=== PATIENT | male | born 1945 | race African-American/Black ===

== ENCOUNTER → 2019-08-30 | Outpatient (CLI) | payer MEDICARE ==
--- NOTE | 2019-08-30 11:22 | Diagnostic Imaging Report ---
EXAMINATION: KNEE THREE VIEWS BILATERAL INDICATION: Bilateral knee pain COMPARISON: None FINDINGS: Left: No acute fracture or dislocation. Alignment is anatomic. Moderate medial compartment predominant tricompartmental degenerative changes. Suprapatellar joint effusion. 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 Right: No acute fracture or dislocation. Alignment is anatomic. Moderate patellofemoral compartment predominant tricompartmental degenerative changes. Suprapatellar joint effusion. 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 IMPRESSION: No acute osseous injury. 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 Bilateral knee joint effusions. Bilateral bone infarcts. Signed by: Anup Suarez MD on 08/30/2019 11:20 AM
== END ==
LOC: RAD 10:20
PROVIDERS: ATTEND Family Medicine
DX: M25.562 Pain in left knee (principal); M25.561 Pain in right knee

== ENCOUNTER → 2020-11-21 | Day surgery (SDC) | payer OTHER ==
[2020-11-16 13:29] LABS: BASOPHILS % 0.4 % (0.0-1.0); EOSINOPHILS # (AUTO) 0.2 (0.0-0.4); EOSINOPHILS % 1.8 % (0.0-6.0); HEMATOCRIT 43.6 % (38.2-49.6); HEMOGLOBIN 13.3 g/dL (14.0-18.0); LYMPHOCYTES # (AUTO) 2.3 (1.0-3.2); LYMPHOCYTES % 28.2 % (18.0-39.1); MEAN CORPUSCULAR HEMOGLOBIN 24.5 pg (28-32); MEAN CORPUSCULAR HGB CONC 30.5 g/dL (31-35); MEAN CORPUSCULAR VOLUME 80.3 fL (81-99); MONOCYTES # (AUTO) 0.7 (0.2-0.8); MONOCYTES % 8.5 % (4.4-11.3); NEUTROPHILS % 60.6 % (38.7-80.0); PLATELET COUNT 244 x10e3/uL (140-360); RED BLOOD COUNT 5.43 x10e6/uL (4.3-5.7); RED CELL DISTRIBUTION WIDTH 15.9 % (11.7-14.4)
[2020-11-16 13:53] LABS: ALANINE AMINOTRANSFERASE 10 IU/L (0-55); ALBUMIN 3.9 g/dL (3.5-5.0); ALKALINE PHOSPHATASE 76 IU/L (40-150); ANION GAP 15.4 mmol/L (8-16); BLOOD UREA NITROGEN 16 mg/dL (7-26); BUN/CREATININE RATIO 18 (6-25); CARBON DIOXIDE 28 mmol/L (22-29); CHLORIDE 103 mmol/L (98-107); CREATININE, SERUM 0.89 mg/dL (0.72-1.25); EST GLOMERULAR FILTRATION RATE > 60 ML/MIN (60-); GLUCOSE 105 mg/dL (74-118); POTASSIUM 4.4 mmol/L (3.5-5.1); SODIUM 142 mmol/L (136-145)
[~2020-11-21] VITALS: Ht 185.4 cm; Wt 92.5 kg
[2020-11-21] VITALS (8 sets, daily range): BP systolic 121–144; BP diastolic 79–89
[~2020-11-21] MED LIST: ALPRAZOLAM 0.5 MG TAB ONE; AMLODIPINE BESY10 MG PO; ASPIRIN81 MG PO; ATORVASTATIN CA20 MG PO; BACLOFEN10 MG PO; DIPHENHYDRAMINE HCL 25 MG CAP ONE; FENTANYL CITRATE/PF 100MCG/2 ML INJ ONE; FLOMAX0.4 MG PO; HEPARIN SOD/SOD CHLORIDE 2,000 ML ONE; IOPAMIDOL 370 MG/ML 200 ML INFUS..BTL INJ ONE; LIDOCAINE HCL 2% LOCAL 20 ML VIAL ONE; LOSARTAN POTASS50 MG PO; MIDAZOLAM HCL 2 MG/2 ML VIAL ONE; MIRTAZAPINE15 MG PO; OMEPRAZOLE40 MG PO; SODIUM CHLORIDE 0.9% 1000ML 1,000 ML ONE; TIZANIDINE HCL4 M1 PO; VITAMIN B122500 MCG PO; VITAMIN C500 MG PO
== END | disposition home or self-care (01) ==
LOC: CATH LAB 10:29
PROVIDERS: ATTEND Internal Medicine Interventional Cardiology
DX: I25.118 Atherosclerotic heart disease of native coronary artery with other forms of angina pectoris (principal); R94.39 Abnormal result of other cardiovascular function study; I10 Essential (primary) hypertension; E78.5 Hyperlipidemia, unspecified; Z01.812 Encounter for preprocedural laboratory examination; Z20.822 Contact with and (suspected) exposure to COVID-19; Z79.82 Long term (current) use of aspirin; Z82.49 Family history of ischemic heart disease and other diseases of the circulatory system
CPT/HCPCS: 36415; 76937; 80053; 83880; 85025; 93454; 99152; C1887; J2001; J2250; J3010; J7030; Q9967; U0002

== ENCOUNTER 2021-01-16 08:38 | Observation (INO) | payer MEDICARE, OTHER ==
[2021-01-11 15:18] LABS: BASOPHILS % 0.7 % (0.0-1.0); EOSINOPHILS # (AUTO) 0.2 (0.0-0.4); EOSINOPHILS % 2.8 % (0.0-6.0); HEMATOCRIT 39.5 % (38.2-49.6); LYMPHOCYTES % 32.1 % (18.0-39.1); MEAN CORPUSCULAR HEMOGLOBIN 24.4 pg (28-32); MEAN CORPUSCULAR HGB CONC 30.4 g/dL (31-35); MEAN CORPUSCULAR VOLUME 80.4 fL (81-99); MONOCYTES # (AUTO) 0.7 (0.2-0.8); MONOCYTES % 11.5 % (4.4-11.3); NEUTROPHILS # (AUTO) 3.2 (2.1-6.9); NEUTROPHILS % 52.6 % (38.7-80.0); PLATELET COUNT 208 x10e3/uL (140-360); RED BLOOD COUNT 4.91 x10e6/uL (4.3-5.7); RED CELL DISTRIBUTION WIDTH 17.6 % (11.7-14.4)
[~2021-01-16] VITALS: Ht 185.4 cm; Wt 86.2 kg
[2021-01-16] VITALS (7 sets, daily range): BP systolic 127–157; BP diastolic 65–82
[~2021-01-16 08:38] MED LIST changes: -ALPRAZOLAM 0.5 MG TAB ONE; -DIPHENHYDRAMINE HCL 25 MG CAP ONE; -FENTANYL CITRATE/PF 100MCG/2 ML INJ ONE; -HEPARIN SOD/SOD CHLORIDE 2,000 ML ONE; -IOPAMIDOL 370 MG/ML 200 ML INFUS..BTL INJ ONE; -LIDOCAINE HCL 2% LOCAL 20 ML VIAL ONE; -MIDAZOLAM HCL 2 MG/2 ML VIAL ONE; +ROPIVACAINE 246.25 MG, EPINEPHRINE HCL 1:1000 1ML 0.5 MG, CLONIDINE HCL 0.08 MG, KETORO... INJ ONE; -SODIUM CHLORIDE 0.9% 1000ML 1,000 ML ONE; +SODIUM CHLORIDE 0.9% 50ML 100 ML ONE
[2021-01-16] MEDS ORDERED: DEXAMETHASONE SOD PHOS 10 MG/1 ML VIAL ONE (08:42)
[2021-01-16] MEDS ORDERED: CELECOXIB 200 MG CAP ONE (08:42)
[2021-01-16] MEDS ORDERED: SODIUM CHLORIDE 0.9% 500ML 500 ML ONE (08:42)
[2021-01-16] MEDS ORDERED: GABAPENTIN 300 MG CAP ONE (08:42)
[2021-01-16] MEDS ORDERED: TRANEXAMIC ACID 1,000 MG/10 ML ML ONE (08:43)
[2021-01-16] MEDS ORDERED: Vancomycin IV 1,000 MG ONE (08:43)
[2021-01-16] MEDS ORDERED: FENTANYL CITRATE/PF 100MCG/2 ML INJ ONE (12:20)
[2021-01-16] MEDS ORDERED: PROPOFOL IV EMULSION 10 MG/ML 20 ML VIAL ONE (12:58)
[2021-01-16] MEDS ORDERED: NEOSTIGMINE 1 MG/ML 10ML VIAL ONE (12:58)
[2021-01-16] MEDS ORDERED: POVIDONE IODINE 0.05% 0.05 % ML PO ONE (12:58)
[2021-01-16] MEDS ORDERED: ROCURONIUM BROMIDE 10 MG/ML 5ML VIAL IV ONE (12:58)
[2021-01-16] MEDS ORDERED: GLYCOPYRROLATE INJ 0.2 MG/ML VIAL ONE (12:58)
[2021-01-16] MEDS ORDERED: SEVOFLURANE INHAL SOLN 250 ML PEN BTL ONE (12:58)
[2021-01-16] MEDS ORDERED: LIDOCAINE HCL 2% LOCAL INJ 5 ML SDV VIAL INJ ONE (12:58)
[2021-01-16] MEDS ORDERED: EPHEDRINE SULFATE INJ 50 MG/ML VIAL ONE (12:58)
[2021-01-16] MEDS ORDERED: ONDANSETRON HCL INJ 2MG/ML 2ML 2 MG/ML VIAL ONE (12:58)
[2021-01-16] MEDS ORDERED: DIPHENHYDRAMINE HCL INJ 50 MG/ML VIAL IV PRN (15:15)
[2021-01-16] MEDS ORDERED: ONDANSETRON HCL INJ 2MG/ML 2ML 2 MG/ML VIAL IV PRN (15:15)
[2021-01-16] MEDS ORDERED: HYDROCODONE/APAP 5MG-325MG TAB PO PRN (15:15)
[2021-01-16] MEDS ORDERED: HYDROCODONE/APAP 7.5MG-325MG 1 EA TAB PO PRN (15:15)
[2021-01-16] MEDS ORDERED: ACETAMINOPHEN 1000 MG/100 ML IV PRN (16:00)
[2021-01-16] MEDS: ASPIRIN 81 MG ENTERIC COATED PO SCH (16:48)
[2021-01-16] MEDS: LACTATED RINGER'S 1,000 ML INJ SCH (16:48)
[2021-01-16] MEDS: DOCUSATE SODIUM 100 MG CAP PO SCH (16:48)
[2021-01-16] MEDS: Cefazolin 1 GM in SODIUM CHLORIDE 0.9% 50ML 50 ML IV SCH (16:48)
[2021-01-16] MEDS: CELECOXIB 200 MG CAP PO SCH (16:48)
[2021-01-16] MEDS ORDERED: ASPIRIN 325 MG TAB PO SCH (17:00)
[2021-01-16] MEDS ORDERED: ZOLPIDEM TARTRATE 5 MG TAB PO PRN (21:00)
[2021-01-17] MEDS: KETOROLAC TROMETHAMINE 30 MG/ML VIAL IV PRN ×2 (00:10→06:24)
[2021-01-17] MEDS: LACTATED RINGER'S 1,000 ML INJ SCH (02:00)
[2021-01-17 04:00] VITALS: BP 123/58
[2021-01-17 06:15] LABS: HEMATOCRIT 32.2 % (38.2-49.6); HEMOGLOBIN 10.3 g/dL (14.0-18.0)
[2021-01-17 08:00] VITALS: BP 156/80
[2021-01-17] MEDS: DOCUSATE SODIUM 100 MG CAP PO SCH (08:31)
[2021-01-17] MEDS: Cefazolin 1 GM in SODIUM CHLORIDE 0.9% 50ML 50 ML IV SCH ×3 (08:31)
[2021-01-17] MEDS: ASPIRIN 81 MG ENTERIC COATED PO SCH (08:31)
[2021-01-17] MEDS: CELECOXIB 200 MG CAP PO SCH (08:31)
[2021-01-17 08:40] VITALS: BP 156/80
== END 2021-01-17 10:15 | disposition home health service (06) ==
LOC: OR 08:38 → PACU V 13:02 → MED/SURG 13:33
PROVIDERS: ADMIT Specialist; ATTEND Specialist
DX: M16.12 Unilateral primary osteoarthritis, left hip (principal); I25.10 Atherosclerotic heart disease of native coronary artery without angina pectoris; I10 Essential (primary) hypertension; Z86.73 Personal history of transient ischemic attack (TIA), and cerebral infarction without residual deficits; R56.9 Unspecified convulsions; Z95.0 Presence of cardiac pacemaker; E11.9 Type 2 diabetes mellitus without complications; Z09 Encounter for follow-up examination after completed treatment for conditions other than malignant neoplasm; Z86.718 Personal history of other venous thrombosis and embolism; Z79.82 Long term (current) use of aspirin; Z01.810 Encounter for preprocedural cardiovascular examination; Z01.812 Encounter for preprocedural laboratory examination; Z01.818 Encounter for other preprocedural examination
CPT/HCPCS: 36415; 71046; 72170; 85014; 85018; 85025; 86850; 86900; 86920; 93005; C1713; C1776; G0378; J0171; J0690; J1100; J1885; J2001; J2405; J2710; J2795; J3010; J3370; J7040; J7121